=== PATIENT | female | born 1995 | race Caucasian/White ===

== ENCOUNTER 2016-09-20 10:09 | Emergency (ER) | payer SELFPAY ==
--- NOTE | 2016-09-28 09:00 | ER ---
ADMIT: 09/20/2016 RM/LOC: [facility] MR#: [id number] [place], [place] [id number] BRISA LOPEZ [address] [address] Emergency Room Report SEX: F AGE: 21 : 1995 DATE: 09/20/2016 The patient is a 21-year-old female, presents to emergency room with vomiting, diarrhea, and abdominal pain for 1 day. She says she works at [employer], does not know what has caused the symptoms, but she says she has had generalized abdominal pain with some fever that started last night. Her sudden diarrhea lead her to feel like she has no energy. REVIEW OF SYSTEMS: Otherwise negative. PAST MEDICAL HISTORY: Of asthma, takes no medications for it. ALLERGIES: SHE IS ALLERGIC TO A MEDICATION THAT SHE RECEIVED IN [place] AND SHE CANNOT REMEMBER WHAT IT IS, BUT IT WAS USED FOR ASTHMA. SOCIAL HISTORY: She is a smoker, 1 pack a day. PHYSICAL EXAMINATION: GENERAL: She is moderately anxious. VITAL SIGNS: Within normal limits with a temp of 99.5. GI: Upon examination, she does not have specific right lower quadrant abdominal pain, it is just distended and is generalized. BACK: Normal inspection. NEURO: Oriented x4. I went ahead and ordered some rehydration IV fluids and Zofran. LABORATORY DATA: CBC within normal limits with a chemistry normal as well and potassium is 3.6, lipase 97. Urine negative for and UA shows ketones 1+. CLINICAL IMPRESSION: Gastroenteritis with mild dehydration, nausea, vomiting, and diarrhea. She received fluids and was released home with instructions with a note for work and Zofran for nausea. See T-sheet for discharge instructions. JOSE Wu / Joseluis Herrera MD / [facility]inley JOB #: [id number] CC: Joseluis Herrera MD, Attending Physician
== END 2016-09-20 13:28 | disposition home or self-care (01) ==
LOC: ER 10:09
DX: K52.9 Noninfective gastroenteritis and colitis, unspecified (principal); E86.0 Dehydration; J45.909 Unspecified asthma, uncomplicated; F17.210 Nicotine dependence, cigarettes, uncomplicated